=== PATIENT | male | born 1935 | race Caucasian/White ===

== ENCOUNTER 2024-07-29 01:50 | Emergency (ER) | payer MEDICARE, SELFPAY ==
[2024-07-29 01:51] VITALS: BP 117/65; PULSE 90; RESP 16; TEMP 36.5; O2SAT 97
[2024-07-29] MEDS: ONDANSETRON 2 MG/ML inj 4 MG IVP (02:20)
[2024-07-29] MEDS: LOPERAMIDE HCL 2 MG CAPSULE 4 MG PO (02:20)
[2024-07-29] MEDS: 0.9 % SODIUM CHLORIDE 1000 ml 1,000 ML 6000 ML IV (02:20)
--- NOTE | 2024-07-29 03:36 | ED.GENADULT ---
HPI - General Adult General Stated complaint: Weakness Time Seen by Provider: 07/29/24 03:36 History of Present Illness HPI narrative: Downtime documentation on Hiro Lee 89-year-old male presents to the emergency department by EMS, shortly accompanied thereafter by his daughter.? Patient started experiencing diarrhea tonight and generalized weakness.? Daughter was present with him when he had a bout of diarrhea and then felt lightheaded after dinner.? She reports that he had a near fainting spell and had decreased responsiveness though he did not lose consciousness for less than a minute.? No neurological changes no postictal phase.? No fever.? No abdominal pain.? Does have a history of prior colon cancer and reports colectomy 5-6 years ago.? Does have a history of AFib and is anticoagulated on Xarelto.? Diarrhea was not bloody.? There has been no vomiting.? Did eat dinner without complication.? Has had no signs of impending illness.? No sick contacts.? Lives at [facility] 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 he feels mildly generally weak but would like to drink fluids.? He has no history of coronary artery disease.? He is not experiencing any chest pain or shortness of breath.? Nursing team was able to clean up a significant amount of diarrhea, confirms that is nonbloody.? He has had no recent antibiotic use no history of C diff. denies any additional information.? Daughter was mainly concerned about the short presyncopal spell.? Neurologically back at baseline.? No history of strokes. Past medical history is most notable for the prior colon cancer with partial colectomy and reanastomosis, also has history of intermittent AFib.? Pertinent home medications atorvastatin pantoprazole Carafate and Xarelto.? No known drug allergies.? No recent surgeries or hospitalizations per their report.? ROS is notable for the GI and generalized symptoms as described above, otherwise denies times 12 systems.? On exam, estimated weight is 213 with a temp of 97.7?, pulse of 90 with respiratory rate of 16 blood pressure 117/65 with O2 sats of 97% on room air.? Generally he is awake and alert appearance consistent with stated age, smells of stool.? Appears well nourished and well hydrated, skin normal color and turgor.? The head is atraumatic eyes with normal-appearing pupils and conjunctiva, tracks me visually normally around the room.? External nose appears normal oropharynx with acyanotic lips, moist membranes.? The neck with normal range of motion, no lymphadenopathy, normal appearance.? Heart with regular sounding rate and rhythm at the moment.? No obvious murmur.? No gallops.? The lungs with normal air entry in all lung barrientos, normal respiratory effort.? Clear to auscultation bilaterally with no wheezes rales or rhonchi.? The abdomen is soft, seems nondistended.? Normoactive bowel sounds are present throughout with no tenderness, mass or guarding.? No hepatosplenomegaly.? The lower extremities have no pitting edema.? Skin is warm and well perfused with normal turgor.? Neurologically he moves all extremities easily and symmetrically, follows commands, answers questions well for stated age.? Mildly hard of hearing, no evidence of significant confusion.? Mood behavior and affect are cooperative and polite.? Insight seems fair. EKG showing what appears to be sinus rhythm with a couple of PVCs present.? Rate is 90.? Normal intervals and axis.? No acute ischemia.? Fairly normal EKG.? EMR down time, comparison cannot be accessed. Assessment plan:? 89-year-old male presenting with a mild presyncopal spell following a bout of diarrhea.? Suspect presyncopal vagal episode.? Differential diagnosis also includes cardiac arrhythmia, PA, dehydration, sepsis, TIA, seizure.? Differential diagnosis for the diarrhea including viral, bacterial, ischemic.? That this point most likely viral gastroenteritis with subsequent mild presyncopal episode, symptoms have markedly improved.? Will place peripheral IV, give a 0.5 L of normal saline 4 of Zofran and 4 of loperamide.? Check basic labs, EKG, electrolytes and viral swabs.? Troponin and CRP.? Await findings. Findings: Viral swabs are negative for influenza, COVID and RSV.? White count reassuring at 9.88 with hemoglobin of 15.3 and platelets of 160.? Point care troponin 0.01.? CRP reassuring at 0.6.? Sodium 141 potassium 4.7 with a creatinine of 2 which is consistent with his records stating that he has stage 3 chronic kidney disease at baseline.? Blood sugars 251 with liver enzymes showing an AST of 20, ALT of 15 with a bilirubin of 1. Update:? Patient has taken oral fluids very well and continues to ask for more.? We have ambulated him around the emergency department with the use of a walker and even though he does have some generalized weakness, he is safe for ambulation.? He has had no further bouts of diarrhea after the Imodium.? I speak with patient and daughter regarding his status.? Daughter reports that he is actually scheduled to move into the shelter facility portion of [place] out of assisted living tomorrow.? She is worried about how she will help take care of him with this illness.? Advice given.? Recommended that she continue [id number] Imodium 2 mg up to every 2 hours.? Prescription for Zofran ([facility]) will be sent to the pharmacy once the computers are up and running.? Drink lots of fluids, slowly advance diet as tolerated.? Use the walker for ambulation.? Does not meet criteria to come into the hospital at this time but if things worsen, please return. Related Data Previous Rx's ?Medication ?Instructions ?Recorded ondansetron 4 mg disintegrating 4 mg PO Q8H PRN nausea and 07/29/24 tablet vomiting #10 tabs Discharge Plan Discharge Clinical Impression: Gastroenteritis Patient Disposition: Home w/ Parent or Adult Condition: Improved Instructions: Acute Diarrhea (ED) Additional Instructions: Patient instructions on Hiro Lee I apologize for the less professional looking discharge instructions, as discussed, we are on computer downtime tonight, we do this once monthly for required patches and updates. Thankfully, things are looking much better here in the emergency department.? I suspect you had a vagal episode which caused a lightheaded episode.? These are very common.? There are no signs of abnormal heart rhythm, dehydration, electrolyte abnormality, significant infection or heart attack.? Unlikely that this was a TIA or seizure.? We are seeing a lot of similar GI illness and unfortunately symptoms are likely to last a few more days.? The emergency department, you were given a 0.5 L of IV fluid, Zofran and Imodium (loperamide).? You may continue taking the Imodium (loperamide) 2 mg up to every 2 hours to help reduce diarrhea and reduce the risk of dehydration.? I will send a prescription for Zofran which is the anti nausea medicine if needed as many people do get vomiting in addition to their diarrhea.? You may take a maximum of 10 tablets of the Imodium per 24 hours.? Continue to drink lots of fluids and ease back into solid foods once you are feeling better.? You will be very weak for a few days, try to use a walker or cane to help you get around and be sure to sit down if you are feeling lightheaded.? Try to avoid public outings as your illness is certainly contagious.? If you have bloody diarrhea, loss of consciousness or severe abdominal pain or fevers, you should return to emergency department. Activity Level: Activity as Tolerated Discharge Diet: Regular Prescriptions: New ondansetron 4 mg tablet,disintegrating 4 mg PO Q8H PRN (Reason: nausea and vomiting) Qty: 10 0RF Stand Alone Forms: [employer] Info Instructions
[2024-07-29 03:40] VITALS: BP 120/74; PULSE 87; RESP 16; O2SAT 93
--- OUTSIDE RECORDS SUMMARY | 2024-07-29 03:52 | XMS_ITS | Clinical Summary ---
[facility] Address [id number] [address] Care Team Providers Care Manager Plant Name Role Phone Farrukh Mauricio MD Primary Care Provider [phone] Source Comments You are receiving this document as you are listed as the primary care provider,follow-up provider, or the patient has been referred to you for consultation.This is in compliance with the Medicare and[facility] EHR Incentive Program,which states Providers who transition their patient to another setting of careor provider of care or refers their patient to another provider of care shouldprovide summary care record for each transition of care or referral. [employer] Allergies Active Allergy Reactions Criticality Noted Date Comments Adhesive Rash 11/07/2018 itching Medications Medication Sig Dispensed Refills Start Date End Date Status atorvastatin (LIPITOR) 40 MG tablet 09/18/2018 Active lisinopril (ZESTRIL) 40 MG tablet 09/20/2018 Active metFORMIN (GLUCOPHAGE) 500 MG tablet Take 2 Tablets by mouth two times a day. 09/18/2018 Active metoprolol succinate (TOPROL XL) 100 MG 24 hour release tablet 09/20/2018 Activ e pantoprazole (PROTONIX) 40 MG tablet 09/18/2018 Active aspirin 325 MG tablet Take 325 mg by mouth daily. Active multivitamin (THERAGRAN) tablet Take 1 Tablet by mouth daily. Active calcium carbonate-vitamin D 600-200 MG-UNIT tablet Take 2 Tablets by mouth two times a day. Active cholecalciferol (VITAMIND3) 2000 units tablet Take 2,000 Units by mouth daily. Active nitroglycerin (NITROSTAT) 0.[address] 0.4 mg under tongue every 5 minutes as needed for Chest Pain. 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 22 g 3 11/21/2018 Active fluorouracil (EFUDEX) 5 % cream Apply to orthodoxy and upper lip biopsy sites nightly for 3-4 weeks (after sites have healed). Wash hands after applying. 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 Social History Tobacco Use Types Packs/Day Years Used Date Smoking Tobacco: Never Smokeless Tobacco: Never Sex and Gender Information Value Date Recorded Sex Assigned at Not on file Gender Identity Not on file Sexual Orientation Not on file Last Filed Vital Signs Vital Sign Reading Time Taken Comments Blood Pressure 146/88 11/21/2018 10:17 AM CDT Pulse 70 11/21/2018 10:17 AM CDT Temperature 37.3 C (99.1 F) 11/05/2018 1:32 PM CDT Respiratory Rate 18 11/05/2018 1:32 PM CDT Oxygen Saturation 96% 11/05/2018 1:32 PM CDT Inhaled Oxygen Concentration - - Weight - - Height - - Body Mass Index - - Plan of Treatment Health Maintenance Due Date Last Done Comments Medicare Welcome Visit 1935 DTaP/Tdap/Td (1 - Tdap) 1956 Pneumococcal 65+ Yrs (1 - PCV) 2002 RSV (1 - 1-dose 75+ series) 2012 COVID-19 Vaccine (3 - season) 2024 09/11/2020, 08/21/2020 Influenza (#1) 2024 03/22/2019, 100 07/2017, 03/17/2017, Additional history exists Zoster/Shingles Completed 09/03/2019, 06/28/2019 HepA Aged Out No longer eligi ble based on patient's age to complete this topic HepB Aged Out No longer eligi ble based on patient's age to complete this topic Hib Aged Out No longer eligi ble based on patient's age to complete this topic IPV (Polio) Aged Out No longer eligi ble based on patient's age to complete this topic MCV4 Aged Out No longer eligi ble based on patient's age to complete this topic Care Teams Manager Plant Relationship Specialty [place] [id number] [facility] [place] [address] PCP - General Family Practice 06/23/18
--- OUTSIDE RECORDS SUMMARY | 2024-07-29 03:52 | XMS_ITS | Clinical Summary ---
Author Organization [facility] Address [place], [place] [address] Care Team Providers Care Client Hr Manager Name Role Phone Paty Guaman MD Primary Care Provider [phone] Allergies Active Allergy Reactions Criticality Noted Date Comments Dust Mites *Unknown 12/18/2020 Feathers Wheezing 12/30/2021 Nsaids (Non-Steroidal Anti-I nflammatory Drug) Bleeding 07/09/2013 Medications blood-glucose meterIndications :Type 2 diabetes mellitus without complication, with long-term current use of insulin (HC) Dispense meter, test strips, lancets covered by pt ins. E11.9 NIDDM type II - Test 2 times/day. Reason: High A1C 1 Each 03/24/20 Active blood sugar diagnostic stripIndications :Type 2 diabetes mellitus without complication, with long-term current use of insulin (HC) Dispense item covered by pt ins. E11.9 NIDDM type II - Test 2 times/day. Reason: High A1C 200 Each 4 03/24/20 Active lancets As directed. Test 2 times per day. 100 Each 03/24/20 Active blood glucose control, normal (True Metrix Level 2) solnIndications: Controlled type 2 diabetes mellitus without complication, without long-term current use of insulin (HC) As directed. 1 Each 11 06/03/20 22 Active Walker - 4 wheelsIndication s:Cerebrovascula r accident (CVA), unspecified mechanism (HC) For home use. Length of need: 99 12 we will put CVA 1 Each 06/09/20 22 Active DropSafe Alcohol Prep Pads 03/25/20 22 Active nitroglycerin (NITROSTAT) 0.4 mg sublingual tabletIndication s:pre-exertional prophylaxis of anginal pain Place 1 Tablet (0.4 mg) under the tongue every 5 minutes if needed for Chest Pain (For chest pain x 3 doses.). 25 Tablet 3 09/25/19 23 Active multivitamin (MVI) tabletIndication s:Essential (primary) hypertension Take 1 Tablet by mouth once daily. 0 11/02/19 23 Active acetaminophen (TYLENOL EXTRA STRGTH) 500 mg tabletIndication s:pain Take 2 Tablets (1,000 mg) by mouth every 6 hours if needed for Pain. Max acetaminophen dose: 4000mg in 24 hrs. 01/22/20 23 Active diphenhydrAMINE (BENADRYL) 25 mg capsuleIndicatio ns:Allergy, initial encounter Take 1 Capsule (25 mg) by mouth 3 times daily if needed. 01/22/20 23 Active Calcium-Cholecal ciferol, D3, 600 mg-5 mcg (200 unit) cap Take by mouth once daily. 0 01/27/20 23 Active rivaroxaban (Xarelto) 20 mg tabletIndication s:Paroxysmal A-fib (HC) TAKE 1 TAB BY MOUTH IN THE EVENING WITH A MEAL 90 Tablet 3 05/15/20 24 Active albuterol HFA (PRO-AIR; VENTOLIN; PROVENTIL) 90 mcg/actuation inhalerIndicatio ns:Cough, unspecified type Inhale 1-2 Puffs by mouth every 6 hours if needed for Shortness Of Breath or Wheezing. 1 Each 05/16/20 24 Active cholecalciferol (VITAMIN D3) 5,000 unit capsuleIndicatio ns:Hypovitaminos is D TAKE ONE CAPSULE BY MOUTH DAILY 30 Capsule 06/19/20 24 Active FeroSuL 325 mg (65 mg iron) tabletIndication s:Low iron TAKE 1 TAB BY MOUTH ONCE DAILY 30 Tablet 06/19/20 24 Active pantoprazole (PROTONIX) 40 mg delayed-release tabletIndication s:Burris's esophagus with dysplasia Take 1 Tablet (40 mg) by mouth once daily before a meal. 90 Tablet 06/18/20 24 Active sucralfate (CARAFATE) 1 gram tabletIndication s:Burris's esophagus with dysplasia Take 1 Tablet (1 g) by mouth four times daily before meals and at bedtime. 360 Tablet 07/02/19 25 Active atorvastatin (LIPITOR) 20 mg tabletIndication s:hypertriglycer idemia Take 1 Tablet (20 mg) by mouth once daily. 90 Tablet 07/02/19 25 Active cholecalciferol, Vitamin D3, 5,000 unit tab tabletIndication s:osteoporosis Take 1 tablet by mouth once daily. 0 04/12/20 19 025 Discontin ued(*Medi cation adjustmen t) Ferrous Fumarate 324 mg (106 mg iron) tablet Take 106 mg by mouth once daily with a meal. 01/22/20 23 025 Discontin ued(*Med complete/ Regimen complete/ Level of care change) atorvastatin (LIPITOR) 20 mg tabletIndication s:hypertriglycer idemia Take 1 Tablet (20 mg) by mouth once daily. 90 Tablet 3 11/21/19 24 025 Discontin ued(*Avai lability/ Formulary change/Co st of medicatio n) sucralfate (CARAFATE) 1 gram tabletIndication s:Burris's esophagus with dysplasia Take 1 Tablet (1 g) by mouth four times daily before meals and at bedtime. 360 Tablet 3 11/21/19 24 025 Discontin ued(*Avai lability/ Formulary change/Co st of medicatio n) Active Problems Problem Noted Date Diagnosed Date Unspecified dementia, unspec ified severity, without behavioral disturbance, psychotic disturbance, mood disturbance, and anxiety 11/21/2023 Overview (11/21/2023): Noted by [facility] last documented on [id number] Iron deficiency anemia 01/06/2023 Overview (02/07/2023): 12-08-22 Gastroenterology and Hepatology-asymptomatic since getting 2 units of transfused RBCs. HGB at 10 , microcytic, no bowel symptoms, no overt bleeding. 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 Primary hypertension 08/02/2016 GERD with esophagitis 07/20/2013 CAD (coronary artery disease) 07/20/2013 S/P coronary angiogram with ALLI to mid LAD 07/13 Atherosclerotic heart diseas e of [place] coronary artery without angina pectoris 07/13/2013 Hyperlipidemia 07/13/2013 Type 2 diabetes mellitus without complications 0 03/01/2013 Resolved Problems Problem Noted Date Diagnosed Date Resolved Date Personal history of transien t ischemic attack (TIA), and cerebral infarction without residual deficits 01/17/2023 11/21/2023 Chronic kidney disease due to hypertension 01/06/2023 11/21/2023 Overview (02/07/2023): 11-01-22 [facility] discharge summary-on Toprol, Hypertension, Chronic Kidney Disease stage3 a Chronic kidney disease due t o type 2 diabetes mellitus 01/06/2023 11/21/2023 Overview (05/11/2023): 10-29-22 [facility] 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- CKD 3, Type 2 diabetes, A1c 6 on 11-26-21, history of taking metformin Microcytic anemia 10/20/2022 11/21/2023 Stage 3a chronic kidney disease 07/12/2022 11/21/2023 Overview (02/07/2023): 11-01-22 [facility] discharge summary Chronic kidney disease stage 3a, 12-09-22 GFR at 57 Speech problem 11/26/2021 11/21/2023 Septic arthritis of left ankle 11/26/2021 11/21/2023 E coli bacteremia 11/18/2021 11/21/2023 Paroxysmal atrial fibrillation 11/15/2021 11/21/2023 Septic arthritis of left ankle 11/15/2021 11/21/2023 [id number] kidney injury 11/15/2021 11/21/2023 Anorexia 01/15/2020 11/21/2023 Essential (primary) hypertension 08/02/2016 11/21/2023 Gastroesophageal reflux dise ase with esophagitis 07/20/2013 11/21/2023 CAD (coronary artery disease ), [place] coronary artery 07/13/2013 11/21/2023 Hyperlipidemia LDL goal <70 07/13/2013 11/21/2023 Type 2 diabetes mellitus without complication 03/01/20 13 11/21/2023 Pure hypercholesterolemia 01/19/2013 Encounters Date Type Department Care Team Description 07/27/2024 12:30 PM MORTGAGE SERVICING SPECIALIST Office Visit [facility] [id number] [place] [address] [phone] Soy Vo MD Concerns (Medication and physical signature ) 07/27/2024 Travel 07/16/2024 Telephone [facility] [id number] [place] [address] [phone] Paty Guaman MD TCU Orders 07/04/2024 Telephone [facility] [address] [place] [phone] Paty Guaman MD Referral 06/29/2024 Telephone [facility] [address] [place] [phone] Paty Guaman MD Home Care ([facility]) 06/29/2024 Telephone [facility] [address] [place] [phone] Paty Guaman MD 06/27/2024 Refill [facility] [address] [place] [phone] Paty Guaman MD Refill Request (Atorvastatin, Sucralfate) 06/12/2024 Refill [facility] [id number] [place] [phone] Paty Guaman MD Refill Request (Cholecalciferol, Pantoprazole, Ferosul) 05/16/2024 11:05 AM MORTGAGE SERVICING SPECIALIST Ancillary Procedure [address] [phone] 05/16/2024 10:30 AM MORTGAGE SERVICING SPECIALIST Office Visit [address] [phone] Soy Vo MD Cough (Very intermittent , productive but does not spit it out, expiatory wheeze when lying down at times, some fatigue. X 2 weeks) 05/16/2024 Travel 05/15/2024 Refill [facility] [id number] [place] [phone] Paty Guaman MD Refill Request (Xarelto) 05/10/[address] [phone] Paty Guaman MD Medication Management from Last 3 Months Immunizations Name Administration Dates Next Due COVID-19 VACCINE SPIKEVAX (M ODERNA 50MCG/0.5ML) 12YO+ PFS 05/11/2023 COVID-19 vaccine (EcoVadisBio NTech 30mcg/0.3mL) 12YO+ BIVALENT PF, MDV 04/29/2022 COVID-19 vaccine ([employer]-Bio NTech 30mcg/0.3mL) PF, MDV 04/08/2021,09/11/2020,08/21/2020 Influenza A (H1N1), Inactivated 07/16/2009 Influenza, High-dose Inactivated 019,03/21/2018,03/17/2017,2015,03/28/2014,03/01/2013,03/28/2012,0 03/19/2011 Influenza, High-dose Quadriv alent Inactivated 03/22/2019,03/21/2018,03/17/2017,2015,02/20/2015,03/28/2014,03/01/2013,1 ,03/19/2011 Influenza, IIV3 (Age >=3 years) 05/10/2006 Influenza, Inactivated AIIV4 (Age 65+ Years) Preserv Free 05/11/2023,04/14/2022,03/10/2021,2019 Pneumococcal Poly,23-Valent (Pneumovax) 11/03/2004 Pneumococcal conj 13-Valent (Prevnar 13) 11/22/2014 Zoster (Shingrix-RZV, recombinant) 09/03/2019, Family History Medical History Relation Name Comments Diabetes type II Mother Heart failure Mother Relation Name Status Comments Father Mother Social History Tobacco Use Types Packs/Day Years Used Date Smoking Tobacco: Former Cigarettes 1 15 1 [phone] - 3762 Smokeless Tobacco: Never Tobacco Cessation:Counseling Given: Not Answered Alcohol Use Standard Drinks/Week Comments Yes 0 (1 standard drink = 0.6 oz pur e alcohol) a couple of drinks a month PHQ-2 Answer Date Recorded PHQ-2 TOTAL SCORE 0 11/21/2023 Social Connections Answer Date Recorded Do you often feel lonely or isolated from those around you? 0 05/16/2024 Financial Resource Strain Answer Date R ecorded Difficulty of Paying Living Expenses 3 05/16/2024 Difficulty of Paying Living Expenses Not on file 05/16/2024 Food Insecurity Answer Date Recorded Do you worry your food will run out before you are able to buy more? 1 05/16/2024 Transportation Needs Answer Date Record ed Does lack of transportation keep you from medica l appointments? 1 05/16/2024 Does lack of transportation keep you from work, meetings or getting things that you need? 1 05/16/2024 Housing Stability Answer Date Recorded What is your housing situation today? 1 05/16/2024 Utilities Answer Date Recorded Do you have trouble paying f or utilities (for example, heat, electricity, water, phone)? 1 05/16/2024 Sex and Gender Information Value Date Recorded Sex Assigned at Not on file Legal Sex Male 6:22 AM MORTGAGE SERVICING SPECIALIST Gender Identity Not on file Sexual Orientation Not on file Obstetrics History Last Filed Vital Signs Vital Sign Reading Time Taken Comments Blood Pressure 102/66 07/27/2024 12:41 PM MORTGAGE SERVICING SPECIALIST Pulse 60 07/27/2024 12:41 PM MORTGAGE SERVICING SPECIALIST Temperature 36.4 C (97.6 F) 05/16/2024 10:39 AM MORTGAGE SERVICING SPECIALIST Respiratory Rate 16 11/07/2023 2:46 PM CDT Oxygen Saturation 97% 05/16/2024 10:39 AM MORTGAGE SERVICING SPECIALIST Inhaled Oxygen Concentration - - Weight 97.3 kg (214 lb 9.6 oz) 07/27/2024 12:41 PM MORTGAGE SERVICING SPECIALIST Height 193 cm (6' 4) 05/16/2024 10:39 AM MORTGAGE SERVICING SPECIALIST Body Mass Index 26.12 05/16/2024 10:39 AM MORTGAGE SERVICING SPECIALIST Plan of Treatment Health Maintenance Due Date Last Done Comments Tdap 1948 Tetanus booster 1957 RSV vaccine for adults or (1 - 1-dose 75+ series) 2012 COVID-19 vaccine series ( season) 2024 05/11/2023, 04/29/2022, 04/08/2021, Additional history exists Influenza for age 65+ 02/19/2024 05/11/2023 , 04/14/2022, 03/10/2021, Additional history exists Depression screening for age 12+ 11/20/2024 11/21/2023, 10/13/2022, 10/08/2021, Additional history exists Medicare Wellness for age 65+ 11/21/2024, 10/13/2022, 10/08/2021 BMI (ht and wt on same day) for age 18+ 05/16/2025 05/16/2024, 11/21/2023, 05/11/2023, Additional history exists Pneumococcal series for age 50+ Completed 5, 11/03/2004 Zoster (shingles) series for age 50+ Completed 09/03/2019, 06/28/2019 Procedures Procedure Name Priority Date/Time Associated Diagnosis Comments XR CHEST 2 VIEWS PA AND LATERAL STAT 05/16/2024 11:14 AM MORTGAGE SERVICING SPECIALIST Cough, unspecified type B PERTUSSIS B PARAPERTUSSIS PCR NON BLOOD Routine 05/16/2024 10:58 AM MORTGAGE SERVICING SPECIALIST Cough, unspecified type COVID/FLU/RSV PANEL Routine 05/16/2024 1 0:58 AM MORTGAGE SERVICING SPECIALIST Cough, unspecified type WI BLOOD COUNT COMPLETE AUTO&AUTO DIFRNTL WBC Routine 05/16/2024 12:00 AM MORTGAGE SERVICING SPECIALIST Cough, unspecified type TSH WITH REFLEX Routine 05/16/2024 12:00 AM MORTGAGE SERVICING SPECIALIST Cough, unspecified type Abnormal weight gain ISTAT CHEM 8 Routine 05/16/2024 12:00 AM MORTGAGE SERVICING SPECIALIST Cough, unspecified type MAGNESIUM Routine 05/16/2024 12:00 AM MORTGAGE SERVICING SPECIALIST Cough, unspecified type IRON PLUS IRON BINDING CAP Routine 05/16/2024 12:00 AM MORTGAGE SERVICING SPECIALIST Iron deficiency anemia, unspecified iron deficiency anemia type from Last 3 Months Results * XR CHEST 2 VIEWS PA AND LATERAL (05/16/2024 11:14 AM MORTGAGE SERVICING SPECIALIST) Anatomical Region Laterality Modality CHEST, THORAX, Lung, HEART Compu lucio Radiography 05/16/2024 11:1 4 AM MORTGAGE SERVICING SPECIALIST Impressions 05/16/2024 11:15 AM MORTGAGE SERVICING SPECIALIST Shallow inspiration. Nothing for pneumonia. Resolution of the previous left lower lobe infiltrates. Moderate size hiatal hernia. Narrative 05/16/2024 11:15 AM MORTGAGE SERVICING SPECIALIST For Patients: As a result of the Century Cures Act, medical imaging exams and procedure reports are released immediately into your electronic medical record. You may view this report before your referring provider. If you have questions, please contact your health care provider. EXAM: XR CHEST 2 VIEWS PA AND LATERAL LOCATION: [facility] DATE: 05/16/2024 INDICATION: Cough, Unspecified Type COMPARISON: 10/21/2022 Procedure Note Danny Skaggs MD - 05/16/2024 For Patients: As a result of the Cures Act, medical imagingexams and procedure reports are released immediately into your electronicmedical record. You may view this report before your referring provider.If you have questions, please contact your health care provider. EXAM: XR CHEST 2 VIEWS PA AND LATERAL LOCATION: [facility] DATE: 05/16/2024 INDICATION: Cough, Unspecified Type COMPARISON: 10/21/2022 IMPRESSION: Shallow inspiration. Nothing for pneumonia. Resolution of the previousleft lower lobe infiltrates. Moderate size hiatal hernia. Soy Vo MD GENERAL IMAGING Final Result * COVID/FLU/RSV PANEL (05/16/2024 10:58 AM MORTGAGE SERVICING SPECIALIST) COVID 19 [facility] Negative Negative 05/16/2024 9:11 PM MORTGAGE SERVICING SPECIALIST [facility] Comment:All PCR tests are holm bject to false negative result due to variability in viral load and collection technique. A negative result does not rule out a SARS-CoV-2 infection. Clinical correlation required. INFLUENZA A PCR Negative 9:11 PM MORTGAGE SERVICING SPECIALIST [facility] INFLUENZA B PCR Negative 9:11 PM MORTGAGE SERVICING SPECIALIST [facility] Respiratory Syncytial Virus Negative 05/16/2024 9:11 PM MORTGAGE SERVICING SPECIALIST [facility] Swab NASOPHARYNGEAL SWAB / Unknown Non-Blood / Unknown 05/16/2024 10:58 AM MORTGAGE SERVICING SPECIALIST 05/16/2024 11:15 AM MORTGAGE SERVICING SPECIALIST Soy Vo MD MICROBIOLOGY Final Result [facility] [address] [place] [address], [place] * B PERTUSSIS B PARAPERTUSSIS PCR NON BLOOD (05/16/2024 10:58 AM MORTGAGE SERVICING SPECIALIST) B PERTUSSIS DNA Negative Negative 10:06 PM MORTGAGE SERVICING SPECIALIST [facility]) B PARAPERTUSS DNA Negative Negative 05/21/2024 10:06 PM MORTGAGE SERVICING SPECIALIST [facility] Nasopharyngeal SPECIMEN FROM NASOPHARYNGEAL STRUCTURE / Unknown Non-Blood / Unknown 05/16/2024 10:58 AM MORTGAGE SERVICING SPECIALIST 05/16/2024 11:15 AM MORTGAGE SERVICING SPECIALIST Narrative [facility] - 05/21/2024 10:06 PM MORTGAGE SERVICING SPECIALIST Test(s) 361118-Wycfkozplo pertussis DNA; 119516- Bordetella parapertussis DNA was developed and its performance characteristics determined by [facility]. It has not been cleared or approved by the Food and Drug Administration. Performed at: - [facility] [address] [place] [address] [id number] Mechanical Systems Design Engineer: Michelle Cao MD, Phone: [phone] us Soy Vo MD MICROBIOLOGY Final Result [facility] ([facility]) [address] [place] [id number], * (ABNORMAL) ISTAT CHEM 8 (05/16/2024 12:00 AM MORTGAGE SERVICING SPECIALIST) POCT, SODIUM, ISTAT 141 138 - 146 mmol/L [facility] (U POCT, POTASSIUM, ISTAT 4.2 3.5 - 4.9 mmol/L [facility] (U POCT, CHLORIDE, ISTAT 104 98 - 109 mmol/L [facility] (U POCT, CARBON DIOXIDE, ISTAT 27 24 - 29 mmol/L [facility] (U POCT, GLUCOSE ISTAT 82 70 - 105 mg/dL [facility] (U POCT, UREA NITROGEN (BUN) ISTAT 22 8 - 26 mg/dL [facility] (U POCT,CREATININ E, ISTAT 1.7(H) 0.6 - 1.3 mg/dL [facility] (U POCT, CALCIUM, IONIZED, ISTAT 5.2 4.5 - 5.3 mg/dL [facility] (U Blood BLOOD SPECIMEN / Unknown 05/16/2024 05/16/2024 11:17 AM MORTGAGE SERVICING SPECIALIST Narrative [facility] - 05/16/2024 11:33 AM MORTGAGE SERVICING SPECIALIST SPLIT 05/16/2024 FROM [id number] Soy Vo MD CHEMISTRY Final Result [facility] [address] [place] [address], [facility] (U [address] [place] [address] * TSH WITH REFLEX (05/16/2024 12:00 AM MORTGAGE SERVICING SPECIALIST) TSH W/REFLEX TO FT4 3.12 0.40 - 4.50 mIU/L [facility] Blood BLOOD SPECIMEN / Unknown 05/16/2024 05/16/2024 11:14 AM MORTGAGE SERVICING SPECIALIST Narrative [facility] - 05/17/2024 4:33 AM MORTGAGE SERVICING SPECIALIST PATIENT UNABLE TO VOID; ADVISED TO RETURN FOR COLLECTION. Soy Vo MD CHEMISTRY Final Result [facility] [address] [place] [address], [facility] [address] [place] [address] * IRON PLUS IRON BINDING CAP (05/16/2024 12:00 AM MORTGAGE SERVICING SPECIALIST) IRON, TOTAL 121 50 - 180 mcg/dL [facility] IRON BINDING CAPACITY 261 250 - 425 mcg/dL (calc) LOC [facility] % SATURATION 46 20 - 48 % (calc) LOC [facility] Blood BLOOD SPECIMEN / Unknown 05/16/2024 05/16/2024 11:14 AM MORTGAGE SERVICING SPECIALIST Narrative [facility] - 05/17/2024 4:55 AM MORTGAGE SERVICING SPECIALIST PATIENT UNABLE TO VOID; ADVISED TO RETURN FOR COLLECTION. Soy Vo MD CHEMISTRY Final Result [facility] [address] [place] [address], [facility] [address] [place] [address] * CBC AND DIFFERENTIAL (05/16/2024 12:00 AM MORTGAGE SERVICING SPECIALIST) WHITE BLOOD CELL COUNT 7.1 3.8 - 10.8 Thousand/u L [facility] (U RED BLOOD CELL COUNT 4.91 4.20 - 5.80 Million/uL [facility] (U HEMOGLOBIN 14.7 13.2 - 17.1 g/dL [facility] (U HEMATOCRIT 45.6 38.5 - 50.0 % [facility] (U MCV 92.9 80.0 - 100.0 fL [facility] (U MCH 29.9 27.0 - 33.0 pg [facility] (U MCHC 32.2 32.0 - 36.0 g/dL [facility] (U Comment: For adults, a slight decrease in the calculated MCHC value (in the range of 30 to 32 g/dL) is most likely not clinically significant; however, it should be interpreted with caution in correlation with other red cell parameters and the patient's clinical condition. RDW 14.6 11.0 - 15.0 % [facility] (U PLATELET COUNT 198 140 - 400 Thousand/u L [facility] (U MPV 11.1 7.5 - 12.5 fL [facility] (U ABSOLUTE NEUTROPHILS 4,871 1,500 - 7,800 cells/uL [facility] (U ABSOLUTE LYMPHOCYTES 1,328 850 - 3,900 cells/uL [facility] (U ABSOLUTE MONOCYTES 753 200 - 950 cells/uL [facility] (U ABSOLUTE EOSINOPHILS 121 15 - 500 cells/uL [facility] (U ABSOLUTE BASOPHILS 28 0 - 200 cells/uL [facility] (U NEUTROPHILS 68.6 % [facility] (U LYMPHOCYTES 18.7 % [facility] (U MONOCYTES 10.6 % [facility] (U EOSINOPHILS 1.7 % [facility] (U BASOPHILS 0.4 % [facility] (U Blood BLOOD SPECIMEN / Unknown 05/16/2024 05/16/2024 11:17 AM MORTGAGE SERVICING SPECIALIST Narrative [facility] - 05/16/2024 11:33 AM MORTGAGE SERVICING SPECIALIST SPLIT 05/16/2024 FROM [id number] Soy Vo MD HEMATOLOGY Final Result [facility] [address] [place] [address], [facility] (U [address] [place] [address] * MAGNESIUM (05/16/2024 12:00 AM MORTGAGE SERVICING SPECIALIST) MAGNESIUM 1.9 1.5 - 2.5 mg/dL [facility] Blood BLOOD SPECIMEN / Unknown 05/16/2024 05/16/2024 11:14 AM MORTGAGE SERVICING SPECIALIST Narrative [facility] - 05/17/2024 4:55 AM MORTGAGE SERVICING SPECIALIST PATIENT UNABLE TO VOID; ADVISED TO RETURN FOR COLLECTION. 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 Healthcare Directive 07/25/2019 020 * Full Code (Latest Code Status on File) Date Activated Date Inactivated Comments 10/20/2022 11:31 PM 11/01/2022 3:00 PM Question Answer Comments Code Status Discussion: Reviewed Preferences * Full Code Date Activated Date Inactivated Comments 11/26/2021 5:39 PM 12/07/2021 10:16 PM Question Answer Comments Code Status Discussion: Reviewed Preferences * Full Code Date Activated Date Inactivated Comments 11/15/2021 11:01 PM 11/19/2021 6:09 PM Question Answer Comments Code Status Discussion: Reviewed Preferences * Full Code Date Activated Date Inactivated Comments 07/12/2013 12:00 PM 07/13/2013 3:13 PM * Full Code Date Activated Date Inactivated Comments 07/12/2013 9:47 AM 07/12/2013 12:00 PM Care Teams Client Hr Manager Relationship Specialty [place] [address] [place] [address] PCP - General Family Practice 11/21/23
--- OUTSIDE RECORDS SUMMARY | 2024-07-29 03:52 | XMS_ITS | Continuity of Care Document ---
Author Organization [facility] Address [address] [address] [place] [address] Phone Care Team Providers Care Rotary Driller Helper Name Role Phone Chris Irwin DO Unavailable Unavailable Medications Medication Instructions Dosage Effective Dates (start - stop) Status Comments Vitamins & Minerals Tab 1 tab by mouth everyday - Active Procedures Procedure Date Subsqt Hosp-da E&m Stable 15 M Subsqt Hosp-da E&m Stable 15 M 23 Colonoscopy Flex; W/bx 1/mx Colonoscopy Flex; W/remov Les- Ugi Endo; W/bx 1/mx Colonoscopy W/Submucosal Injection Subsqt Hosp-da E&m Minr Compl 3 Init Hosp-da E&m Mod Severity 3 Level Iv-surg Path Gross/micro 10 CRS Charges Advance Directives Directive Yes / No Effective Date File Name No Information Encounters Encounter Description Practice Location Reason(s) For Visit Diagnoses Date Provider Providers Copied on Encounter [facility], [address] [address], [place], [place], [id number], [place] tel:[phone] [facility] No Information [address] [facility], [place], [place], [id number], [place]. tel:[phone] Subsqt Hosp-da E&m Stable 15 M [facility], [address] [address], [place], [id number], [place] tel:[phone] [facility] No Information [address] [facility], [place], [place], [id number], [place]. tel:[phone] Referring Provider: Chris Irwin DO, [address] [facility] [address], [facility] [place], [address] . tel:[phone] Init Hosp-da E&m Mod Severity [facility], [address] [address], [place], [id number], [place] tel:[phone] [facility] No Information 3 [facility]ol[facility] Kraus. [address] [facility], [place], [place], [id number], [place]. tel:[phone] Referring Provider: Pa Kwan MD, [address] [place], [address]. tel:[phone] [facility], [address] [address], [facility] [place], [id number], [place] tel:[phone] [facility] Polyp-intes/rec t/stom-unc BehColon Cancer ScreeningRectal Polyp/Benign 4201 0 No Information Referring Provider: Farrukh Maur[place], [address] [place], [address]. tel:[phone] Family History Family Member Type Diagnosis Age At Onset No Information Payers Payer name Insurance type Covered libertarian ID Authoriza tion(s) No Information Social History Type Description Quantity Date Captured Comments Sex Male Smoking Status No Information Chief Complaint And Reason For Visit No Information Reason For Referral Reason For Referral No Information History Of Present Illness Encounter Date Complaint History Of Prese nt Illness No Information Functional Status Date Functional Assessmen t No Information Instructions Date Instruction Additional Infor mation No Information Assessments Type Assessment Date No Information Patient Care Teams Name Effective Dates (start - stop) Status Members No Information
--- OUTSIDE RECORDS SUMMARY | 2024-07-29 03:52 | XMS_ITS | Clinical Summary ---
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 For routine questions regarding patient records, call [phone] during business hours, M-F 8:00 AM - 5:00 PM Central Time. Record requests for emergency care only can be directed to [phone] at any time.[facility] Allergies Active Allergy Reactions Criticality Noted Date Comments Feathers Wheezing (Reselect Reaction) 022 House Dust Mite Other (see comments) 12/18/2020 Medications mupirocin (BACTROBAN) 2 % ointment Apply 1 Application topically 2 (two) times a day as needed. 9 Active atorvastatin (LIPITOR) 20 mg tablet Take 1 tablet by mouth at bedtime. 3 Active calcium carbonate-vitam in D3 1,500 mg (600 mg calcium)-5 mcg (200 Unit) per tablet Take by mouth. Activ e cholecalciferol (VITAMIN D3) 125 mcg (5,000 Unit) tablet Take 1 tablet by mouth daily. 9 Active diphenhydrAMINE (BENADRYL) 25 mg capsule Take 25 mg by mouth as needed for allergies. 9 Active multivitamin tablet Take 1 tablet by mouth daily. 3 Active nitroglycerin (NITROSTAT) 0.[address] 0.4 mg under the tongue every 2 (two) hours as needed. 3 Active pantoprazole (PROTONIX) 40 mg EC tablet Take 40 mg by mouth every morning before breakfast. 9 Active sucralfate (CARAFATE) 1 gram tablet Take 1 g by mouth 4 (four) times a day before meals and bedtime. Active ferrous fumarate 324 mg (106 mg iron) tablet Take 106 mg of iron by mouth daily. Active oxyCODONE (ROXICODONE) 5 mg immediate release tabletIndicatio ns:Acute Pain Take 1 tablet (5 mg total) by mouth every 4 (four) hours as needed for moderate pain or score 4-6 of 10 or severe pain or score 7-10 of 10 (Pain uncontrolled by Tylenol in the days following surgery.) Indication: Acute Pain. 5 tablet 3 Active acetaminophen (TYLENOL) 500 mg tablet Take 2 tablets (1,000 mg total) by mouth every 6 (six) hours as needed for pain. 3 Active aspirin 325 mg tablet Take 1 tablet (325 mg total) by mouth as needed for pain. Would hold in the post-operative setting. Discuss chcf use with primary care provider. 3 Active rivaroxaban (XARELTO) 20 mg tablet Take 1 tablet (20 mg total) by mouth daily with dinner. Restart 01/21/2023 evening. 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 HGB at 10 , microcytic, no bowel symptoms, no overt bleeding. 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 01/06/2023 Overview (01/17/2023): 10-29-22 [facility]- CKD 3, Type 2 diabetes, A1c 6 on 11-26-21, history of taking metformin Malignant Neoplasm Of Colon Descending Overview (01/17/2023): 11-25-22 [facility]- diagnosed as having a malignant neoplasm of the colon 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 Chronic Kidney Disease (CKD) , Stage 3a Glomerular Filtration Rate (GFR) 45 To 59 07/12/2022 Overview (01/17/2023): 11-01-22 [facility] discharge summary Chronic kidney disease stage 3a, 12-09-22 GFR at 55 Atrial Fibrillation Paroxysmal 11/15/2021 Overview (01/17/2023): 11-25-22 [facility]-on Xarelto Hypertension Essential Primary 08/02/2016 Gastro-Esophageal Reflux Dis ease With Esophagitis Without Bleeding 07/20/2013 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 No 12/07/2022 Within the last year, have y ou been humiliated or emotionally abused in other ways by your partner or ex-partner? No Within the last year, have y ou been kicked, hit, slapped, or otherwise physically hurt by your partner or ex-partner? No 12/07/2022 Within the last year, have y ou been raped or forced to have any kind of sexual activity by your partner or ex-partner? No 12/07/2022 Overall Financial Resource Strain (CARDIA) Answe r Date Recorded How hard is it for you to pa y for the very basics like food, housing, medical care, and heating? Not hard at all 12/07/2022 Exercise Vital Sign Answer Date Recorde d On average, how many days pe r week do you engage in moderate to strenuous exercise (like a brisk walk)? 0 days 12/07/2022 On average, how many minutes do you engage in exercise at this level? 10 min 12/07/2022 Hunger Vital Sign Answer Date Recorded Within the past 12 months, y ou worried that your food would run out before you got the money to buy more. Never true 12/08/19 Within the past 12 months, t he food you bought just didn't last and you didn't have money to get more. Never true 12/07/2022 PRAPARE - Transportation Answer Date Re corded In the past 12 months, has l ack of transportation kept you from medical appointments or from getting medications? No 11/19 In the past 12 months, has l ack of transportation kept you from meetings, work, or from getting things needed for daily living? No 12/07/2022 Nutrition Answer Date Recorded Nutrition: EVOO Fat Source Unknown 12/07 On average, how many serving s of fruits and vegetables do you eat per day (serving size is equal to 1 cup or approximately the size of a tennis ball)? 0-2 12/07/2022 Dental Answer Date Recorded Dental: Regular Dentist Yes 12/08/19 Employment Answer Date Recorded Employment status Retired 12/07/2022 Housing Stability Answer Date Recorded What is your living situation today? I have a [facility] place to live 12/07/2022 Sex and Gender Information Value Date Recorded Sex Assigned at Male 12/11/2022 6:11 AM CDT Legal Sex Male 2:05 PM CDT Gender Identity Male 12/11/2022 6:11 AM CDT Sexual Orientation Straight 12/11/2022 6: 11 AM CDT Last Filed Vital Signs Vital Sign Reading Time Taken Comments Blood Pressure 152/59 01/21/2023 10:50 AM CDT Pulse 86 01/21/2023 10:50 AM CDT Temperature 36.4 C (97.5 F) 01/21/2023 10:50 AM CDT Respiratory Rate 16 01/21/2023 10:5 0 AM CDT Oxygen Saturation 100% 01/21/2023 10: 50 AM CDT Inhaled Oxygen Concentration - - Weight 97.9 kg (215 lb 13.3 oz) 01/20/2023 4:33 PM CDT Height 189 cm (6' 2.41) 01/17/2023 8:39 AM CDT Body Mass Index 27.41 01/17/2023 8:39 AM CDT Plan of Treatment Health Maintenance Due Date Last Done Comments Diabetic Office Visit with Foot Exam 1937 Dilated Eye Exam 1937 Urine Albumin 1937 DTaP,Tdap,and Td Vaccines (1 - Tdap) 1956 RSV vaccine - (32-36 weeks) or 60+ years (1 - 1-dose 75+ series) 2012 COVID-19 Vaccine (2023- season) 2024 05/11/2023, 04/29/2022, 04/08/2021, Additional history exists Influenza Vaccine (#1) 2024 , 04/14/2022, 03/10/2021, Additional history exists Hemoglobin A1C 05/22/2024 11/21/2023, 04/21, 12/09/2022, Additional history exists Depression Screening (Annual PHQ-2) 06/20/2024 Fall Risk Screen (Annual) 06/20/2024 Creatinine Level (Kidney Function Test) 11/20/2024 11/21/2023, 04/22/2023, 02/07/2023, Additional history exists Pneumococcal vaccine (50+ years) Completed 11/22/2014, 11/03/2004 Zoster Vaccines Completed 09/03/2019, 06/28/2019 Glucose Test for Med Monitoring Discontinued 11/21/2023, 04/22/2023, 02/02/2023, Additional history exists IPV Vaccines Aged Out No longer eligi ble based on patient's age to complete this topic Medical Devices Implanted Type Area Phlebotomy Technologist Device Identifier Shelf Expiration Date Model / Serial / Lot Vidhya Demarco Augustin Patel - [id number] Implanted:Qty : 1 on 01/17/2023 by Bo Blancas M.D., M.B.A. at [facility] Hardware e.g. pins/screws/ rods [employer] [id number] / / Stent Other-12/08/19 13 Implanted: (Quantity not on file) Stent Other Midline: Heart Procedures Procedure Name Priority Date/Time Associated Diagnosis Comments GLUCOSE POCT, B Routine 01/21/2023 7:59 AM CDT BASIC METABOLIC PANEL, S/P Routine 01/20/2023 7:40 AM CDT HEMOGLOBIN A1C, B Routine 12/09/2022 10: 47 AM CDT Diabetes Mellitus Type 2 Without Complication (HCC) from Last 3 Months or Most Recently Relevant to Health Maintenance Results * Glucose, POCT (01/21/2023 7:59 AM CDT) Glucose, POCT, B 123 70 - 140 mg/dL 01/21/2023 8:03 AM CDT PCDE Site Capillary 01/21/2023 8:03 AM CDT PCDE Last Intake 3-4 hours 01/21/2023 8:03 AM CDT PCDE Blood 01/21/2023 7:59 AM CDT 01/21/2023 8:03 AM CDT us Unknown Provider LAB POCT ORDERABLES-MANUAL Aretha l Result POC [facility] [address] [place] [address], [facility] PCDE [facility] POC [address] [place] [address] * (ABNORMAL) Basic Metabolic Panel (01/20/2023 7:40 AM CDT) Potassium, S 3.9 3.6 - 5.2 mmol/L 01/20/2023 9:20 AM CDT DTL Sodium, S 143 135 - 145 mmol/L 01/20/2023 9:20 AM CDT DTL Chloride, S 110(H) 98 - 107 mmol/L 01/20/2023 9:20 AM CDT DTL Bicarbonate, S 25 22 - 29 mmol/L 01/20/2023 9:20 AM CDT DTL Anion Gap 8 7 - 15 01/20/2023 9:20 AM CDT DTL BUN (Blood Urea Nitrogen), S 22 8 - 24 mg/dL 01/20/2023 9:20 AM CDT DTL Creatinine 1.31 0.74 - 1.35 mg/dL 01/20/2023 9:20 AM CDT DTL Estimated GFR (eGFR) 53(L) >=60 mL/min/BSA 01/20/2023 9:20 AM CDT DTL Comment: Estimated GFR calculated using the 2020 CKD_EPI creatinine equation. Calcium, Total, S 8.9 8.8 - 10.2 mg/dL 01/20/2023 9:20 AM CDT DTL Glucose, S 117 70 - 140 mg/dL 01/20/2023 9:20 AM CDT DTL Blood (Blood, Venous) 01/20/2023 7:40 AM CDT 01/20/2023 8:02 AM CDT Ginny Jaeger APRN, C.N.P., M.S.N. LAB BLOOD ADD-ON Final Result [facility] [address] [place] [address], [facility] [address] [place] [address] * Hemoglobin A1c (12/09/2022 10:47 AM CDT) Hemoglobin A1c, B 5.5 4.2 - 5.6 % 12/09/2022 12:35 PM CDT NPRG Blood (Blood, Venous) 12/09/2022 10:47 AM CDT 12/09/2022 12:01 PM CDT Heriberto Alvarez M.D. LAB BLOOD ADD-ON Final Re sult [facility] [address] [place] [address], [facility] NPRG [facility] [address] [place] [address] from Last 3 Months or Most Recently Relevant to Health Maintenance Insurance [employer] Advance Directives For more information, please contact: [phone] * Full Code (Latest Code Status on File) Date Activated Date Inactivated Comments 01/17/2023 8:36 AM 01/21/2023 1:42 PM Question Answer Comments Full Code: Discussed Care Teams Kettle Fry Cook Operator Relationship Specialty Start Date End Date Elsewhere, Pcp PCP - General Internal Medicine 01/13/23
--- OUTSIDE RECORDS SUMMARY | 2024-07-29 03:52 | XMS_ITS | Clinical Summary ---
Author Organization [facility] Address [address] [place] [address] Care Team Providers Care Snow Ranger Name Role Phone Farrukh Mauricio MD Primary Care Provider [phone] Allergies No known active allergies Medications METFORMIN HCL PO Active LISINOPRIL PO Active ASPIRIN ADULT PO Active Calcium Carb-Cholecalci ferol (CALCIUM 600 + D) 600-200 MG-UNIT TABS Active Cephalexin (KEFLEX PO) Active vitamin D3 (CHOLECALCIFERO L) 2000 units (50 mcg) tablet Take 1 tablet by mouth daily Active METOPROLOL TARTRATE PO Active diphenhydrAMINE (BENADRYL) 25 MG capsule Take 1 capsule (25 mg) by mouth every 6 hours as needed for itching or allergies 30 capsule 9 Active Social History Tobacco Use Types Packs/Day Years Used Date Smoking Tobacco: Never Assessed Adolescent Education Answer Date Record ed Getting School Help Needed Not on file 03/18 Sex and Gender Information Value Date Recorded Sex Assigned at Not on file 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 Gender Identity Not on file Sexual Orientation Not on file Last Filed Vital Signs Vital Sign Reading Time Taken Comments Blood Pressure 131/75 11/05/2018 4:30 PM CDT Pulse 80 11/05/2018 4:30 PM CDT Temperature 36.8 C (98.3 F) 11/05/2018 2:25 PM CDT Respiratory Rate 23 11/05/2018 4:30 PM CDT Oxygen Saturation 98% 11/05/2018 4:30 PM CDT Inhaled Oxygen Concentration - - Weight 104.3 kg (230 lb) 11/05/2018 2:25 PM CDT Height 193 cm (6' 3.98) 09/10/2013 9:00 AM CDT Body Mass Index 28.01 09/10/2013 9:00 AM CDT Plan of Treatment Not on file Insurance [employer] MEDICARE ADVANTAGE Care Teams Snow Ranger Relationship Specialty Start [place] [address] [place] [phone] PCP - General Family Practice 07/17/13
[2024-07-29 04:28] LABS: Anion Gap 13 mEq/L (7-15); Blood Urea Nitrogen* 34 mg/dL (7-30); Calcium* 8.8 mg/dL (8.4-10.6); Carbon Dioxide* 16 mmol/L (20-32); Chloride* 112 mmol/L (96-114); Estimated Glomerular Filt Rate 32 ml/min; Glucose* 251 mg/dL (60-115); Potassium* 4.7 mmol/L (3.6-5.1); Sodium* 141 mmol/L (135-149)
[2024-07-29 04:29] LABS: Alanine Aminotransferase* 12 U/L (4-50); Albumin* 3.8 g/dL (3.3-5.0); Alkaline Phosphatase* 67 U/L (40-150); Aspartate Amino Transferase* 20 U/L (12-35); C Reactive Protein* 0.6 mg/dL (0.5-1.0); Total Protein* 6.3 g/dL (6.0-8.3)
[2024-07-29 04:29] LABS: Lactate* 3.5 mmol/L (0.5-1.9)
[2024-07-29 04:30] LABS: PCR FLU A Negative PCR FLU A (Negative); PCR FLU B Negative PCR FLU B (Negative); PCR RSV Negative PCR RSV (Negative); SARS PCR* Negative SARS-CoV-2 (Negative); White Blood Count* 9.88 K/uL (4.50-11.00)
[2024-07-29 04:31] LABS: Basophils Percent Auto 0.1 % (0.0-3.0); Eosinophils Percent Auto 0.2 % (0.0-7.0); Hematocrit 47.3 % (37.0-53.0); Hemoglobin* 15.3 gm/dL (13.5-17.5); Lymphocytes Percent Auto 0.7 % (20-44); Mean Corpuscular HGB Conc 32 gm/dL (32-36); Mean Corpuscular Hemoglobin 29 pg (26-34); Mean Corpuscular Volume 92 fL (80-100); Monocytes Percent Auto 10.1 % (0.0-11.0); Neutrophils Percent Auto 88.3 % (42.0-72.0); Platelet Count* 161 K/uL (140-440); Red Blood Count 5.17 m/uL (4.30-5.90); Slide Review Reflex No
--- NOTE | 2024-07-30 10:14 | ED.NURSE ---
[facility] staff called requesting DC instructions be faxed to them regarding this pt. DC packet printed and faxed to [phone].
== END 2024-07-29 04:00 | disposition home or self-care (01) ==
LOC: ED 03:50
PROVIDERS: Emergency Provider Family Medicine; PCP Student in an Organized Health Care Education/Training Program
DX: K52.9 Noninfective gastroenteritis and colitis, unspecified (principal); R55 Syncope and collapse
CPT/HCPCS: 36415; 80053; 83605; 85025; 86140; 87631; 93005; 96374; 99284; A9270; J2405; J7030